=== PATIENT | male | born 1980 | race Caucasian/White ===

== ENCOUNTER 2024-01-01 10:29 | Outpatient (OUT) | payer SELFPAY ==
--- NOTE | 2024-01-01 | XR_ITS ---
[address] [address] Patient Name: LEAH ZHU MRN: [id number] date: 1980 Sex: M Assigned Patient Location: Current Patient Location: Accession/Order Number: [id number] Exam Date: 01/01/2024 10:32 Report Date: 01/01/2024 11:52 At the request of: SHAYNA MICHELE Procedure: XR foot RT min 3V PROCEDURE: XR foot RT min 3V COMPARISON: None. HISTORY: RIGHT FOOT PAIN FINDINGS: BONES:No acute fracture or dislocation. Minimal degenerative changes with marginal osteophyte formation in the midfoot. Minimal enthesopathic spurring of the calcaneus at the Achilles insertion SOFT TISSUES:Negative. No visible soft tissue swelling. EFFUSION:None visible. OTHER: Negative. XR/XR foot RT min 3V IMPRESSION: Minimal degenerative changes Electronically authenticated by: BASIM BARBER Date: 01/01/2024 11:52
== END 2024-01-01 10:30 | disposition home or self-care (01) ==
LOC: EC 10:30
PROVIDERS: Visit Provider Podiatrist Foot & Ankle Surgery
DX: M79.671 Pain in right foot (principal)
CPT/HCPCS: 73630